=== PATIENT | male | born 1955 | race Caucasian/White ===

== ENCOUNTER 2024-04-11 14:09 | Emergency (ER) | payer OTHER ==
[~2024-04-11] VITALS: Ht 175.3 cm; Wt 104.3 kg
[~2024-04-11 14:09] MED LIST: ALBMDI INH; BROM118S61 PO; PRED50TA PO; SULF1TAB48 PO
[2024-04-11 14:12] VITALS: BP_SYST 128; PULSE 63; RESP 20; TEMP 97.6; O2SAT 95
[2024-04-11 14:53] VITALS: BP_SYST 131; PULSE 82; RESP 16; O2SAT 96
== END 2024-04-11 14:52 | disposition home or self-care (01) ==
LOC: SED 14:09
DX: L02.415 Cutaneous abscess of right lower limb (principal); Z79.899 Other long term (current) drug therapy; Z79.2 Long term (current) use of antibiotics
CPT/HCPCS: 99281